=== PATIENT | female | born 1995 | race Two or more races ===

== ENCOUNTER 2019-10-07 15:46 | Emergency (ER) | payer BC, OTHER ==
[~2019-10-07] VITALS: Ht 152.4 cm; Wt 49.9 kg
[2019-10-07 15:54] VITALS: BP 120/84
== END 2019-10-07 16:50 | disposition home or self-care (01) ==
LOC: ER 15:49
DX: J06.9 Acute upper respiratory infection, unspecified (principal); Z20.828 Contact with and (suspected) exposure to other viral communicable diseases
CPT/HCPCS: 36415